=== PATIENT | female | born 1990 | race Caucasian/White ===

== ENCOUNTER 2018-05-24 15:35 | Emergency (ER) | payer OTHER ==
[2018-05-24] MEDS ORDERED: NA CHLORIDE 0.9% 1,000 ML ONE (16:00)
[2018-05-24 16:16] LABS: Absolute Lymphocytes (CBC) 2.5 K/uL (0.7-4.9); Absolute Monocytes 0.7 K/uL (0.1-1.3); Absolute Neutrophil 6.7 K/uL (1.8-8.0); Basophils % 0.5 % (0-1.3); Hematocrit 40.5 % (36.0-45.0); Lymphocytes % 22.6 % (15.3-44.8); MCH 31.9 pg (27.0-35.0); MCV 91.7 fL (80-100); MPV 7.9 fL (7.6-11.3); Monocytes % 6.2 % (3.3-12.3); RBC Red Blood Cell Count 4.41 M/uL (3.86-4.86)
[2018-05-24 16:38] LABS: Albumin 3.8 g/dL (3.4-5.0); Bilirubin Direct 0.1 mg/dL (0-0.2); Bilirubin Total 0.6 mg/dL (0.2-1.0); Potassium 3.6 mmol/L (3.5-5.1); Protein, Total 7.4 g/dL (6.4-8.2)
--- NOTE | 2018-05-24 16:47 | RAD REPORT ---
EXAM DESCRIPTION: US - Abdomen Exam Limited - 05/24/2018 4:37 pm CLINICAL HISTORY: ABD PAIN COMPARISON: <Comparisons> FINDINGS: The gallbladder demonstrates no gallstones. No pericholecystic fluid or gallbladder wall t hickening. The common bile duct is normal measuring 3 mm. The liver demonstrates no findings of intrahepatic biliary dilatation. IMPRESSION: Unremarkable examination.
--- NOTE | 2018-05-24 16:57 | ER ---
Nurse's Notes [facility] Name: Manuel Zuniga Age: 28 yrs Sex: Female : 1990 Arrival Date: 05/24/2018 Time: 15:37 Bed 27 Private MD: None, None; PATRICIA AMBRIZ Diagnosis: Abdominal tenderness;Functional dyspepsia Presentation: 05/24 15:49 Presenting complaint: Patient states: RLQ pain that started several days ago, pt stated sg that she has an ultrasound ordered for but was instructed to come to the ED if symptoms worsened. Transition of care: patient was not received from another setting of care. Onset of symptoms was May 24, 2018. Risk Assessment: Do you want to hurt yourself or someone else? Patient reports no desire to harm self or others. Initial Sepsis Screen: Does the patient meet any 2 criteria? No. Patient's initial sepsis screen is negative. Does the patient have a suspected source of infection? No. Patient's initial sepsis screen is negative. Care prior to arrival: None. 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 - Social history:: Smoking status: Patient/guardian denies using tobacco. - Ebola Screening: : Patient negative for fever greater than or equal to 101.5 degrees Fahrenheit, and additional compatible Ebola Virus Disease symptoms Patient denies exposure to infectious person Patient denies travel to an Ebola-affected area in the 21 days before illness onset No symptoms or risks identified at this time. Screenin:03 Abuse screen: Denies injuries from another. Nutritional screening: No deficits noted. tw2 Tuberculosis screening: No symptoms or risk factors identified. Fall Risk None identified. Assessment: 16:43 General: Appears in no apparent distress. comfortable, Behavior is calm, cooperative. mg2 Pain: Complains of pain in abdomen Pain does not radiate. Pain currently is 5 out of 10 on a pain scale. Quality of pain is described as aching, Pain began gradually, Is intermittent. Neuro: Level of Consciousness is awake, alert, obeys commands, Oriented to person, place, time, situation. Cardiovascular: Capillary refill < 3 seconds Patient's skin is warm and dry. Respiratory: Airway is patent Respiratory effort is even, unlabored, Respiratory pattern is regular, symmetrical. EENT: No signs and/or symptoms were reported regarding the EENT system. Derm: Skin is intact, Skin is pink, warm \T\ dry. normal. Musculoskeletal: Circulation, motion, and sensation intact. Vital Signs: 15:56 BP 123 / 71; Pulse 80; Resp 18; Temp 98.4; Pulse Ox 100% on R/A; Weight 63.5 kg; Height mg2 5 ft. 3 in. (160.02 cm); Pain 6/10; 17:22 BP 122 / 78; Pulse 80; Resp 18; Pulse Ox 100% on R/A; Pain 2/10; mg2 15:56 Body Mass Index 24.80 (63.50 kg, 160.02 cm) mg2 ED Course: 15:37 Patient arrived in ED. sb2 15:38 None, None is Private Physician. sb2 15:38 PATRICIA AMBRIZ is Private Physician. sb2 15:47 Tera Alicea, DORON is Primary Nurse. mg2 15:49 Marques Hein MD is Attending Physician. dank 15:51 Triage completed. sg 15:51 Arm band placed on. sg 16:00 Inserted saline lock: 22 gauge in left antecubital area, using aseptic technique. Blood tw2 collected. 16:02 Placed in gown. Bed in low position. Adult w/ patient. Pulse ox on. NIBP on. tw2 16:37 Ultrasound completed. Patient moved back from ultrasound. cy 16:38 US Abdomen Limited In Process Unspecified. EDMS 16:55 PATRICIA AMBRIZ is Referral Physician. dank 16:56 Han Peace MD is Referral Physician. dank 17:21 No provider procedures requiring assistance completed. IV discontinued, intact, mg2 bleeding controlled, No redness/swelling at site. Pressure dressing applied. Administered Medications: 16:02 Drug: NS 0.9% 1000 ml Route: IV; Rate: 1 bolus; Site: left antecubital; tw2 17:21 Follow up: Response: No adverse reaction; IV Status: Completed infusion mg2 Outcome: 16:57 Discharge ordered by . dank 17:21 Discharged to home ambulatory, with family. mg2 17:21 Condition: stable 17:21 Discharge instructions given to patient, family, Instructed on discharge instructions, follow up and referral plans. medication usage, Demonstrated understanding of instructions, follow-up care, medications, Prescriptions given X 3. 17:22 Patient left the ED. mg2 Signatures: Dispatcher [employer] EDMS Rj Irizarry, DORON RN Marques Rodriguez MD MD cha Wise, Tara, RN RN tw2 Lashae Palmer Sheri 2 Tera Alicea RN RN mg2 Corrections: (The following items were deleted from the chart) 16:10 15:56 BP 123 / 71; Pulse 80bpm; Resp 18bpm; Pulse Ox 100% RA; Temp 98.4F; Pain 6/10; mg2mg2
--- NOTE | 2018-05-24 16:57 | EDPHYS ---
Physician Documentation [facility] Name: Manuel Zuniga Age: 28 yrs Sex: Female : 1990 Arrival Date: 05/24/2018 Time: 15:37 Bed 27 Private MD: None, None; PATRICIA AMBRIZ ED Physician Marques Hein HPI: 05/24 16:52 This 28 yrs old Female presents to ER via Ambulatory with complaints of dank Gallbladder Problem. 16:52 The patient presents with abdominal pain. Onset: The symptoms/episode began/occurred 3 dank day(s) ago. The symptoms do not radiate. Associated signs and symptoms: none. Modifying factors: The symptoms are alleviated by nothing, the symptoms are aggravated by food. Severity of pain: At its worst the pain was mild in the emergency department the pain is unchanged. The patient has experienced a previous episode, yesterday. 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 - Social history:: Smoking status: Patient/guardian denies using tobacco. - Ebola Screening: : Patient negative for fever greater than or equal to 101.5 degrees Fahrenheit, and additional compatible Ebola Virus Disease symptoms Patient denies exposure to infectious person Patient denies travel to an Ebola-affected area in the 21 days before illness onset No symptoms or risks identified at this time. ROS: 16:53 Constitutional: Negative for fever, chills, and weight loss, Eyes: Negative for injury, dank pain, redness, and discharge, ENT: Negative for injury, pain, and discharge, Neck: Negative for injury, pain, and swelling, Cardiovascular: Negative for chest pain, palpitations, and edema, Respiratory: Negative for shortness of breath, cough, wheezing, and pleuritic chest pain, Back: Negative for injury and pain, : Negative for injury, bleeding, discharge, and swelling, MS/Extremity: Negative for injury and deformity, Skin: Negative for injury, rash, and discoloration, Neuro: Negative for headache, weakness, numbness, tingling, and seizure, Psych: Negative for depression, anxiety, suicide ideation, homicidal ideation, and hallucinations. 16:53 Abdomen/GI: Positive for abdominal pain, of the right upper quadrant, left upper quadrant, right lower quadrant and left lower quadrant. Exam: 16:53 Constitutional: This is a well developed, well nourished patient who is awake, alert, dank and in no acute distress. Head/Face: Normocephalic, atraumatic. Eyes: Pupils equal round and reactive to light, extra-ocular motions intact. Lids and lashes normal. Conjunctiva and sclera are non-icteric and not injected. Cornea within normal limits. Periorbital areas with no swelling, redness, or edema. ENT: Nares patent. No nasal discharge, no septal abnormalities noted. Tympanic membranes are normal and external auditory canals are clear. Oropharynx with no redness, swelling, or masses, exudates, or evidence of obstruction, uvula midline. Mucous membranes moist. Neck: Trachea midline, no thyromegaly or masses palpated, and no cervical lymphadenopathy. Supple, full range of motion without nuchal rigidity, or vertebral point tenderness. No Meningismus. Chest/axilla: Normal chest wall appearance and motion. Nontender with no deformity. No lesions are appreciated. Cardiovascular: Regular rate and rhythm with a normal S1 and S2. No gallops, murmurs, or rubs. Normal PMI, no JVD. No pulse deficits. Respiratory: Lungs have equal breath sounds bilaterally, clear to auscultation and percussion. No rales, rhonchi or wheezes noted. No increased work of breathing, no retractions or nasal flaring. Abdomen/GI: Soft, non-tender, with normal bowel sounds. No distension or tympany. No guarding or rebound. No evidence of tenderness throughout. Back: No spinal tenderness. No costovertebral tenderness. Full range of motion. Skin: Warm, dry with normal turgor. Normal color with no rashes, no lesions, and no evidence of cellulitis. MS/ Extremity: Pulses equal, no cyanosis. Neurovascular intact. Full, normal range of motion. Neuro: Awake and alert, GCS 15, oriented to person, place, time, and situation. Cranial nerves II-XII grossly intact. Motor strength 5/5 in all extremities. Sensory grossly intact. Cerebellar exam normal. Normal gait. Vital Signs: 15:56 BP 123 / 71; Pulse 80; Resp 18; Temp 98.4; Pulse Ox 100% on R/A; Weight 63.5 kg; Height mg2 5 ft. 3 in. (160.02 cm); Pain 6/10; 17:22 BP 122 / 78; Pulse 80; Resp 18; Pulse Ox 100% on R/A; Pain 2/10; mg2 15:56 Body Mass Index 24.80 (63.50 kg, 160.02 cm) mg2 MDM: 15:49 Patient medically screened. [facility] 16:53 Data reviewed: vital signs, nurses notes, lab test result(s), radiologic studies, [facility] ultrasound. 05/24 15:51 Order name: Amylase, Serum; Complete Time: 16:[address] [facility] 05/24 15:51 Order name: Basic Metabolic Panel [facility] 05/24 15:51 Order name: CBC with Diff; Complete Time: 16:[address] [facility] 05/24 15:51 Order name: Creatinine for Radiology; Complete Time: 16:[address] [facility] 05/24 15:51 Order name: Hepatic Function [facility] 05/24 15:51 Order name: Lipase; Complete Time: 16:[address] [facility] 05/24 15:51 Order name: Urine Microscopic Only [facility] 05/24 15:51 Order name: US Abdomen Limited; Complete Time: 16:[address] [facility] 05/24 15:52 Order name: Basic Metabolic Panel; Complete Time: 16:45 [facility] 05/24 15:52 Order name: Liver (Hepatic) Function; Complete Time: 16:45 [facility] 05/24 16:12 Order name: Urine Dipstick--Ancillary (enter results) 05/24 16:12 Order name: Urine --Ancillary (enter results) 05/24 17:21 Order name: Urine Culture [facility] 05/24 15:51 Order name: Urine Test (obtain specimen); Complete Time: 16:[address] [facility] 05/24 15:51 Order name: IV Saline Lock; Complete Time: 16:[address] [facility] 05/24 15:51 Order name: Labs collected and sent; Complete Time: 16:[address] [facility] 05/24 15:51 Order name: Urine Dipstick-Ancillary (obtain specimen); Complete Time: 16:[address] [facility] Administered Medications: 16:02 Drug: NS 0.9% 1000 ml Route: IV; Rate: 1 bolus; Site: left antecubital; tw2 17:21 Follow up: Response: No adverse reaction; IV Status: Completed infusion mg2 Disposition: 05/24/18 16:57 Discharged to Home. Impression: Abdominal tenderness, Functional dyspepsia. - Condition is Stable. - Discharge Instructions: Abdominal Pain, Adult, Biliary Colic, Adult, Abdominal Pain, Adult, [id number]. - Prescriptions for Bentyl 20 mg Oral Tablet - take 1 tablet by ORAL route every 6 hours As needed; 20 tablet. Pepcid 20 mg Oral Tablet - take 1 tablet by ORAL route every 12 hours for 10 days; 20 tablet. Zofran 4 mg Oral Tablet - take 1 tablet by ORAL route every 12 hours As needed; 20 tablet. - Medication Reconciliation Form, Thank You Letter, Antibiotic Education, Prescription Opioid Use form. - Follow up: PATRICIA AMBRIZ; When: 2 - 3 days; Reason: Recheck today's complaints, Continuance of care, Re-evaluation by your physician. Follow up: Han Peace MD; When: 2 - 3 days; Reason: Recheck today's complaints, Re-evaluation by your physician. - Problem is new. - Symptoms have improved. Signatures: Dispatcher [employer] EDRj Adams RN RN Marques Hein MD MD cha Wise, Tara RN RN tw2 Tera Alicea RN RN mg2 Corrections: (The following items were deleted from the chart) 17:22 16:57 05/24/2018 16:57 Discharged to Home. Impression: Abdominal tenderness; Functional mg2 dyspepsia. Condition is Stable. Forms are Medication Reconciliation Form, Thank You Letter, Antibiotic Education, Prescription Opioid Use. Follow up: PATRICIA AMBRIZ; When: 2 - 3 days; Reason: Recheck today's complaints, Continuance of care, Re-evaluation by your physician. Follow up: Han Peace; When: 2 - 3 days; Reason: Recheck today's complaints, Re-evaluation by your physician. Problem is new. Symptoms have improved. dank
[2018-05-24 17:04] LABS: Urine Blood NEGATIVE (NEG); Urine Glucose NEGATIVE (NEG); Urine Protein NEGATIVE (NEG); Urine pH 7.5 (5.0-7.0)
[2018-05-24 17:19] LABS: Urine Bacteria 20-50 /HPF (<20); Urine Culture Reflex Order REFLEXED; Urine RBC <5 /HPF (NONE SEEN)
[2018-05-24 17:35] VITALS: TEMP 98.4; O2SAT 100
[2018-05-24 17:36] VITALS: BP 122/78
== END 2018-05-24 17:22 | disposition home or self-care (01) ==
LOC: ER 15:35
DX: K30 Functional dyspepsia (principal); Z88.1 Allergy status to other antibiotic agents
CPT/HCPCS: 36415; 76705; 80048; 80076; 81003; 81015; 81025; 82150; 83690; 85025; 87086; 87088; 96360; 99284; J7030

== ENCOUNTER 2022-06-03 15:44 | Emergency (ER) | payer BC ==
--- OUTSIDE RECORDS SUMMARY | 2022-06-03 16:01 | XMS REPORT | Continuity of Care Document ---
:1990 Author Organization [facility] t Address [facility] [place] [address] Care Team Providers Name Role Phone GELY BUTTS Attending Clinician Unavailable GC_SWHASLW_[place]_B Attending Clinician Unavailable GELY BUTTS Attending Clinician Unavailable GC_SWHATBIC_[place]_B Attending Clinician Unavailable Bui_Q_WAG Attending Clinician Unavailable RACHEL BRAMBILA Attending Clinician Unavailable GC_SWHASLWC_[place]_B Admitting Clinician Unavailable EGLY BUTTS Admitting Clinician Unavailable GC_SWHATBIC_[place]_B Admitting Clinician Unavailable Bui_Q_WAG Admitting Clinician Unavailable UMAIR HESTER Admitting Clinician Unavailable Payers Payer Name Policy Type Policy Number Effective Date Expiration Date S raymond BCBSTX PPO [id number] 2018 2024 00:00:00 00:00:00 [place] [id number] 2020 OF [place] (PPO) 00:00:00 Problems Condition Condition Condition Status Onset Resolution Last Treating Co mments Source Name Details Category Date Date Treatment Clinician Date Seasonal Seasonal Problem Active [place] 5-13 Family 00:00: Practic 00 e Asthma Asthma Problem Active [facility] 5-13 Family 00:00: Practic 00 e Acne Acne Problem Active [facility] 5-13 Family 00:00: Practic 00 e Allergies, Adverse Reactions, Alerts Allergy Allergy Status Severity Reaction(s) Onset Inactive Treating Comm ents Source Name Type Date Date Clinician Bactrim Allergy Active [facility] Ibuprofe Allergy Active Wheezing [place] [facility] e Social History Smoking Status Start Date Stop Date Source Never Smoker [facility] Medications Ordered Filled Start Stop Current Ordering Indication Dosage Frequency Signature Comments Components Source Medication Medication Date Date Medication? Clinician (SIG) Name Name Symbicort Symbicort No Symbicort [facility] 160 mcg-4.5 160 mcg-4.5 5-13 160 F amily mcg/actuati mcg/actuati 00:00: mcg-4.5 Practic on HFA on HFA 00 mcg/actuat e aerosol aerosol ion HFA inhaler inhaler aerosol inhaler doxycycline doxycycline No doxycyclin [facility] hyclate 100 hyclate 100 e hyclate Family mg capsule mg capsule 100 mg P ractic Take 1 Take 1 capsule e capsule capsule Take 1 every day every day capsule by oral by oral every day route. route. by oral route. phentermine phentermine No 1 Q1D phentermin [facility] 37.5 mg 37.5 mg e 37.5 mg Fami ly tablet Take tablet Take tablet Practic 1 tablet 1 tablet Take 1 e every day every day tablet by oral by oral every day route in route in by oral the the route in morning. morning. the morning. Immunizations Ordered Immunization Filled Immunization Date Status Commen ts Source Name Name Tdap Tdap 2015-10-24 Completed [facility] Family 00:00:00 Practice Vital Signs Vital Name Observation Time Observation Value Comments Source BP Diastolic 2019-04-13 00:00:00 70 mm[Hg] [facility] Height 2019-04-13 00:00:00 63 [in_i] [facility] BMI (Body Mass 2019-04-13 00:00:00 26.2 kg/m2 [facility] Family Index) Practice BP Systolic 2019-04-13 00:00:00 122 mm[Hg] [facility] Body Weight 2019-04-13 00:00:00 147.8 [lb_av] [facility] BP Diastolic 2019-03-05 00:00:00 64 mm[Hg] [facility] Height 2019-03-05 00:00:00 63 [in_i] [facility] BMI (Body Mass 2019-03-05 00:00:00 28 kg/m2 [facility] Family Index) Practice BP Systolic 2019-03-05 00:00:00 122 mm[Hg] [facility] Body Weight 2019-03-05 00:00:00 158.1 [lb_av] [facility] Procedures Procedure Date / Time Performed Performing Clinician Sourc e electrocardiogram 2019-04-13 00:00:00 [facility] Fa arelis Practice Append[facility] 2016-10-24 [facility] 2012-10-24 00:00:[address] [facility] Tubal Ligation [facility] Plan of Care Planned Activity Planned Date Details Comments Source Instructions [facility] Encounters Start End Encounter Admission Attending Care Care Encounter Source Date/Time Date/Time Type Type Clinicians Facility Department ID 2021-04-11 Outpatient [facility] [id number] [place] 01:04:43 GELY Weller 2022-05-05 2022-05-05 Outpatient GC_SWHASLWC PRIV PRIV [id number] [facility] 05:19:00 05:19:00 _Parish_B [id number] [facility] tierney 2022-04-08 2022-04-08 Outpatient GC_SWHASLWC PRIV PRIV [id number] [facility] 11:31:00 11:31:00 _Parish_B [id number] [facility] tierney 2022-03-30 2022-03-30 Outpatient GC_SWHASLWC PRIV PRIV [id number] [facility] 10:24:00 10:24:00 _Parish_B [id number] [facility] 2022-03-30 2022-03-30 Outpatient Valeri, PRIV PRIV [id number] 00:00:00 00:00:00 Gely [id number] 2022-03-18 2022-03-18 Outpatient VALERI, FB FB [id number] FB 06:38:00 13:00:00 GELY 2022-02-27 2022-02-27 Outpatient GC_SWHATBIC PRIV PRIV [id number] [facility] 02:16:00 02:16:00 _Parish_B [id number] [facility] 2022-02-04 2022-02-04 Outpatient GC_SWHASLWC PRIV PRIV [id number] [facility] 04:52:00 04:52:00 _Parish_B [id number] [facility] 2022-01-30 2022-01-30 Outpatient GC_SWHATBIC PRIV PRIV [id number] [facility] 01:51:00 01:51:00 _Parish_B [id number] [facility] 2022-01-18 2022-01-18 Outpatient GC_SWHASLWC PRIV PRIV [id number] [facility] 06:28:00 06:28:00 _Parish_B [id number] [facility] 2021-12-31 2021-12-31 Outpatient GC_SWHATBIC PRIV PRIV [id number] [facility] 03:17:00 03:17:00 _Parish_B [id number] [facility] 2021-12-28 2021-12-28 Outpatient GC_SWHASLWC PRIV PRIV [id number] [facility] 11:12:00 11:12:00 _Parish_B [id number] [facility] 2021-12-28 2021-12-28 Outpatient [place], PRIV PRIV [id number] 00:00:00 00:00:00 Gely [id number] 2021-12-27 2021-12-27 Outpatient GC_SWHASLWC PRIV PRIV [id number] [facility] 05:18:00 05:18:00 _Parish_B [id number] [facility] 2021-12-24 2021-12-24 Outpatient GC_SWHASLWC PRIV PRIV [id number] [facility] 02:28:00 02:28:00 _Parish_B [id number] [facility] 2021-12-23 2021-12-23 Outpatient GC_SWHATBIC PRIV PRIV [id number] [facility] 06:32:00 06:32:00 _Parish_B [id number] [facility] 2021-12-23 2021-12-23 Outpatient [place], PRIV PRIV [id number] 00:00:00 00:00:00 Gely [id number] 2021-12-18 2021-12-18 Outpatient GC_SWHASLWC PRIV PRIV [id number] [facility] 06:15:00 06:15:00 _Parish_B [id number] [facility] 2021-04-13 2021-04-13 Outpatient Bui_Q_WAG VFP VFP [id number] 09:04:00 09:04:00 [id number] Family Practic e 2021-04-02 2021-04-02 Outpatient Bui_Q_WAG VFP VFP [id number] [place] [address] 10:06:00 10:06:00 [id number] Family Practic e 2021-03-26 2021-03-27 Inpatient RACHEL BRAMBILA FB MED [id number] FB 22:39:00 18:45:00 2021-03-11 2021-03-11 [id number] 06:01:00 18:05:00 GELY 2021-02-18 2021-02-18 Outpatient GC_SWHASLWC PRIV PRIV [id number] [facility] 12:53:00 12:53:00 _Parish_B [id number] [facility] 2021-02-14 2021-02-14 Outpatient GC_SWHASLWC PRIV PRIV [id number] [facility] 03:51:00 03:51:00 _Parish_B [id number] [facility] 2021-02-11 2021-02-11 Outpatient GC_SWHASLWC PRIV PRIV [id number] [facility] 05:00:00 05:00:00 _Parish_B [id number] [facility] 2021-02-11 2021-02-11 Outpatient EARL Butts [id number] 00:00:00 00:00:00 Gely [id number] 2019-04-13 2019-04-13 Chema Avila [facility] [place] - [id number] 1 [facility] 00:00:00 00:00:00 MD Des: [facility] y [address] [facility] [address], [place] [address] , Ph. 2019-03-05 2019-03-05 Chema Avila [facility] [place] - [id number] [address] [place] [address] 00:00:00 00:00:00 MD Des: [facility] y [address] [facility] Practice - [address], [place] [address] , Ph. Results This patient has no known results.
[2022-06-03] MEDS ORDERED: DIPHENHYDRAMINE 50 MG/ML VIAL ONE (16:02)
[2022-06-03] MEDS ORDERED: FAMOTIDINE 20 MG/2 ML VIAL IV ONE (16:02)
--- NOTE | 2022-06-03 18:17 | ER ---
Nurse's Notes [facility] Name: Manuel Zuniga Age: 32 yrs Sex: Female : 1990 Arrival Date: 06/03/2022 Time: 15:47 Bed 3 Private MD: Diagnosis: Allergic Reaction;shortness of breath;Rhinorrhea Presentation: 06/03 15:47 Chief complaint: EMS states: Pt is [employer] employee, was at work when she aa5 started sneezing, coughing, having an itchy throat, developed into stridor and pt was diaphoretic. Pt currently c/o slight itchiness to throat and nasal congestion. 15:47 Acuity: DEV 3 aa5 15:47 Coronavirus screen: At this time, the client does not indicate any symptoms associated aa5 with coronavirus-19. Ebola Screen: No symptoms or risks identified at this time. Onset: The symptoms/episode began/occurred 1 hour(s) ago. Anaphylaxis evaluation, No signs noted at this time. Initial Sepsis Screen: Does the patient meet any 2 criteria? HR > 90 bpm. Does the patient have a suspected source of infection? No. Patient's initial sepsis screen is negative. Risk Assessment: Do you want to hurt yourself or someone else? Patient reports no desire to harm self or others. Onset of symptoms was June 03, 2022. 15:47 Method Of Arrival: EMS: [facility] aa5 15:47 Care prior to arrival: Medication(s) given: Albuterol Neb x 2, Atrovent Neb x 1, aa5 Solu-Medrol 125 mg IVP, Benadryl 25 mg IM, 0.3 ml Epinephrine 1:1,000 SQ IV initiated. 20 GA, in the left antecubital area. [employer]: 15:47 LMP N/A - Hysterectomy aa5 Historical: - Allergies: 15:47 Bactrim; aa5 15:47 Ibuprofen; aa5 15:47 Vancomycin; aa5 15:47 NSAIDS; aa5 - PMHx: 15:47 Asthma; aa5 - PSHx: 15:47 hysterectomy; aa5 - Immunization history:: Adult Immunizations up to date. - Social history:: Smoking status: Patient denies any tobacco usage or history of. Screenin:00 Abuse screen: Denies threats or abuse. Nutritional screening: No deficits noted. tw2 Tuberculosis screening: No symptoms or risk factors identified. Fall Risk None identified. Assessment: 15:47 General: Appears uncomfortable, Behavior is calm, cooperative. Pain: Denies pain. aa5 Neuro: Level of Consciousness is awake, alert, obeys commands, Oriented to person, place, time, situation. Cardiovascular: Heart tones S1 S2 present Rhythm is regular. Respiratory: Airway is patent Respiratory effort is even, unlabored, Respiratory pattern is regular, symmetrical, Breath sounds are clear bilaterally. GI: Patient currently denies nausea, vomiting. : No signs and/or symptoms were reported regarding the genitourinary system. EENT: Reports nasal congestion nasal discharge that is watery itchy throat that has improved with medications EMS administered. . Derm: Skin is pink, warm \T\ dry. Musculoskeletal: Range of motion: intact in all extremities. 16:25 Reassessment: Patient is alert, oriented x 3, equal unlabored respirations, skin aa5 warm/dry/pink. Patient states feeling better. 17:20 Reassessment: Patient is alert, oriented x 3, equal unlabored respirations, skin aa5 warm/dry/pink. Patient states feeling better. Patient states symptoms have improved. 17:20 General: Appears comfortable, Behavior is calm, cooperative. aa5 18:25 Reassessment: Patient is alert, oriented x 3, equal unlabored respirations, skin aa5 warm/dry/pink. Patient states feeling better. Patient states symptoms have improved. Vital Signs: 15:47 BP 135 / 80; Pulse 103; Resp 20 S; Temp 98.1(O); Pulse Ox 100% on R/A; Weight 72.57 kg aa5 (R); Height 5 ft. 3 in. (160.02 cm) (R); 16:25 BP 135 / 80; Pulse 99; Resp 17 S; Pulse Ox 100% on R/A; aa5 17:20 BP 130 / 86; Pulse 100; Resp 18 S; Pulse Ox 98% on R/A; aa5 18:10 BP 123 / 66; Pulse 98; Resp 16 S; Temp 98.0(TE); Pulse Ox 97% ; aa5 15:47 Body Mass Index 28.34 (72.57 kg, 160.02 cm) aa5 ED Course: 15:47 Patient arrived in ED. ms3 15:47 Dale Kurtz DO is Attending Physician. ms3 15:47 Arm band placed on. aa5 15:47 Patient has correct armband on for positive identification. Bed in low position. Call aa5 light in reach. Side rails up X2. Client placed on continuous cardiac and pulse oximetry monitoring. NIBP monitoring applied. 15:52 Jessica Rangel, RN is Primary Nurse. aa5 16:03 Triage completed. aa5 18:14 Cortes Brown DO is Referral Physician. ms3 18:25 No provider procedures requiring assistance completed. IV discontinued, intact, aa5 bleeding controlled, No redness/swelling at site. Pressure dressing applied. Administered Medications: 15:54 Drug: Pepcid (famotidine) 20 mg Route: IVP; Site: left antecubital; tw2 16:05 Follow up: Response: No adverse reaction aa5 15:59 Drug: Benadryl (diphenhydrAMINE) 25 mg Route: IVP; Site: left antecubital; tw2 16:05 Follow up: Response: No adverse reaction aa5 Medication: 18:25 VIS not applicable for this client. aa5 Outcome: 18:17 Discharge ordered by MD. ms3 18:30 Discharged to home ambulatory, with significant other. aa5 18:30 Condition: improved 18:30 Discharge instructions given to patient, Instructed on discharge instructions, follow up and referral plans. medication usage, Demonstrated understanding of instructions, follow-up care, medications, Prescriptions given X 1. 18:33 Patient left the ED. aa5 Signatures: Jessica Rangel RN RN aa5 Radha Ballard RN RN tw2 Dale Kurtz DO DO ms3 Corrections: (The following items were deleted from the chart) 16:25 15:47 EENT: Reports itchy throat that has improved with medications EMS administered. . aa5 aa5
[2022-06-03 20:18] VITALS: BP 135/80; TEMP 98.1; O2SAT 100
--- NOTE | 2022-06-04 18:33 | EDPHYS ---
Physician Documentation [facility] Name: Manuel Zuniga Age: 32 yrs Sex: Female : 1990 Arrival Date: 06/03/2022 Time: 15:47 Bed 3 Private MD: ED Physician Dale Kurtz HPI: 06/03 18:17 This 32 yrs old Female presents to ER via EMS with complaints of Allergic Reaction. ms3 18:17 This 32 yrs old Female presents to ER via EMS with complaints of Allergic Reaction. ms3 18:17 The patient presents with itching, redness of skin, runny nose, stridor. Onset: The ms3 symptoms/episode began/occurred just prior to arrival. Associated signs and symptoms: Pertinent positives: shortness of breath, swelling. Possible causes: The patient has no known obvious cause for the symptoms. Severity of symptoms: At their worst the symptoms were severe in the emergency department the symptoms have improved. [employer]: 15:47 LMP N/A - Hysterectomy aa5 Historical: - Allergies: 15:47 Bactrim; aa5 15:47 Ibuprofen; aa5 15:47 Vancomycin; aa5 15:47 NSAIDS; aa5 - PMHx: 15:47 Asthma; aa5 - PSHx: 15:47 hysterectomy; aa5 - Immunization history:: Adult Immunizations up to date. - Social history:: Smoking status: Patient denies any tobacco usage or history of. ROS: 18:17 Constitutional: Negative for fever, and chills. Eyes: Negative for injury, pain, ms3 redness, and discharge, Neck: Negative for injury, pain, and swelling, Cardiovascular: Negative for chest pain, and palpitations. 18:17 MS/Extremity: Negative for injury and deformity, Neuro: Negative for headache, weakness, numbness, tingling. 18:17 Respiratory: Positive for shortness of breath. 18:17 All other systems are negative. Exam: 18:17 Constitutional: This is a well developed, well nourished patient who is awake, alert, ms3 and in no acute distress. Eyes: Pupils equal round and reactive to light, extra-ocular motions intact. Lids and lashes normal. Conjunctiva and sclera are non-icteric and not injected. Periorbital areas with no swelling, redness, or edema. Neck: Trachea midline, no cervical lymphadenopathy. Supple, full range of motion without nuchal rigidity, or vertebral point tenderness. No Meningismus. Chest/axilla: Normal chest wall appearance and motion. Nontender with no deformity. Cardiovascular: Regular rate and rhythm with a normal S1 and S2. No gallops, murmurs, or rubs. Normal PMI, no JVD. No pulse deficits. Respiratory: Lungs have equal breath sounds bilaterally, clear to auscultation and percussion. No rales, rhonchi or wheezes noted. No increased work of breathing, no retractions or nasal flaring. Abdomen/GI: Soft, non-tender, with normal bowel sounds. No distension or tympany. No guarding or rebound. No evidence of tenderness throughout. MS/ Extremity: Pulses equal, no cyanosis. Neurovascular intact. Full, normal range of motion. Neuro: Awake and alert, GCS 15, oriented to person, place, time, and situation. Cranial nerves II-XII grossly intact. Motor strength 5/5 in all extremities. Sensory grossly intact. Cerebellar exam normal. Normal gait. Psych: Awake, alert, with orientation to person, place and time. Behavior, mood, and affect are within normal limits. 18:17 Skin: rash a mild rash is noted, rash can be described as erythematous. Vital Signs: 15:47 BP 135 / 80; Pulse 103; Resp 20 S; Temp 98.1(O); Pulse Ox 100% on R/A; Weight 72.57 kg aa5 (R); Height 5 ft. 3 in. (160.02 cm) (R); 16:25 BP 135 / 80; Pulse 99; Resp 17 S; Pulse Ox 100% on R/A; aa5 17:20 BP 130 / 86; Pulse 100; Resp 18 S; Pulse Ox 98% on R/A; aa5 18:10 BP 123 / 66; Pulse 98; Resp 16 S; Temp 98.0(TE); Pulse Ox 97% ; aa5 15:47 Body Mass Index 28.34 (72.57 kg, 160.02 cm) aa5 MDM: 15:47 Patient medically screened. ms3 18:17 Differential diagnosis: anaphylaxis, angioedema, Hereditary Angioedema urticaria. Data ms3 reviewed: vital signs, nurses notes, and as a result, I will discharge patient. Counseling: I had a detailed discussion with the patient and/or guardian regarding: the historical points, exam findings, and any diagnostic results supporting the discharge/admit diagnosis, the need for outpatient follow up, to return to the emergency department if symptoms worsen or persist or if there are any questions or concerns that arise at home. ED course: Discussed PE findings with patient. Patient to follow up with Dr Brown in 2-3 days. Patient understands/ agrees with plan. All questions answered. Return precautions given to include worsening symptoms, or any other concerns. Patient is improved, in NAD, non-toxic appearing, ambulatory in ED, speaking full sentences.. Administered Medications: 15:54 Drug: Pepcid (famotidine) 20 mg Route: IVP; Site: left antecubital; tw2 16:05 Follow up: Response: No adverse reaction aa5 15:59 Drug: Benadryl (diphenhydrAMINE) 25 mg Route: IVP; Site: left antecubital; tw2 16:05 Follow up: Response: No adverse reaction aa5 Disposition Summary: 06/03/22 18:17 Discharge Ordered Location: Home ms3 Condition: Stable ms3 Diagnosis - Allergic Reaction ms3 - shortness of breath ms3 - Rhinorrhea ms3 Followup: ms3 - With: Cortes Brown DO - When: 2 - 3 days - Reason: Recheck today's complaints Discharge Instructions: - Discharge Summary Sheet tw2 - Anaphylactic Reaction, Adult, [id number] ms3 Forms: - Work release form tw2 - Medication Reconciliation Form ms3 - Thank You Letter ms3 - Antibiotic Education ms3 - Prescription Opioid Use ms3 Prescriptions: - Prednisone 20 mg Oral Tablet - take 2 tablets by ORAL route once daily for 5 days; 10 tablet; Refills: 0, ms3 Product Selection Permitted Signatures: Jessica Rangel RN RN aa5 Radha Ballard RN RN tw2 Dale Kurtz DO DO ms3
== END 2022-06-03 18:33 | disposition home or self-care (01) ==
LOC: ER 15:44
DX: R06.02 Shortness of breath (principal); J34.89 Other specified disorders of nose and nasal sinuses; R21 Rash and other nonspecific skin eruption; Z88.1 Allergy status to other antibiotic agents; Z88.3 Allergy status to other anti-infective agents; Z88.6 Allergy status to analgesic agent
CPT/HCPCS: 96375; 96374; 99283; J1200